=== PATIENT | male | born 1970 | race Caucasian/White ===

== ENCOUNTER 2020-01-31 01:55 | Outpatient (CLI) | payer BC, SELFPAY ==
[2020-01-31 20:00] LABS: SARS-CoV-2 RNA PCR Negative
== END 2020-01-31 01:56 | disposition home or self-care (01) ==
LOC: ANHCOVIDDT 01:56
PROVIDERS: Visit Provider Orthopaedic Surgery
DX: Z01.818 Encounter for other preprocedural examination (principal); Z20.828 Contact with and (suspected) exposure to other viral communicable diseases
CPT/HCPCS: 87635; C9803; U0003

== ENCOUNTER 2020-02-03 02:31 | Day surgery (SDC) | payer BC, SELFPAY ==
[2020-01-29 14:10] VITALS: BMI 31.7
--- NOTE | 2020-01-31 14:23 | WPDANESEPPF ---
Anes - Initial Pre Proc Eval Procedure: Operation Date: 02/03/20 13:00 Proposed Procedures p Left Fourth Trigger Finger Release - Son Peres MD Date/Time: 01/31/20 14:23 Surgeon: Son Peres MD Pre Op Diagnosis: Left Fourth Trigger Finger Patient Data Age: 49 Gender: M Height: 1.75 m Weight: 97.52 kg Allergies Allergy/AdvReac Type Severity Reaction Status Date / Time bacitracin Allergy Mild Rash Verified 02/03/20 10:48 [From Neosporin ([id number])] neomycin Allergy Mild Rash Verified 02/03/20 10:48 [From Neosporin ([id number])] polymyxin B Allergy Mild Rash Verified 02/03/20 10:48 [From Neosporin ([id number])] Home Medications Medication Instructions Recorded Confirmed Type escitalopram oxalate 10 mg tablet 10 mg PO HS 11/21/19 02/03/20 History Patient hx anesthesia problems: none Family hx anesthesia problems: none PMFSH Past Medical History Medical History BMI 30.0-30.9,adult H/O: gout Healthy adult male Trigger finger, left ring finger Surgical History Surgical History History of appendectomy History of orthopedic surgery History of tonsillectomy Social History Social History Smoking status: Former smoker Tobacco type: cigarettes Second hand tobacco smoke exposure: No Smoking end date: 02/13/90 Alcohol intake: current Substance use: current Substance use type: marijuana Living arrangements: alone Gender identity (if verbalized by the patient): Male Spiritual care concerns: No Anes - Eval Final PreProcedure Day of Procedure 01/31/20 14:23 Patient weight: obese Heart: regular rate and rhythm Lungs: clear to auscultation and normal air movement Airway: Mallampati scale class II Neurological: alert and oriented Last oral intake: >/= 8 hours ASA classification: II Emergent: no Anesthetic plan: proceed Anesthesia type and monitoring: general GIVS and standard monitoring Informed Consent: The patient's anesthetic plan and its attendant risks and benefits were discussed with the patient/family/POA. Questions were solicited and answers provided to the satisfaction of the patient/family/POA.
[2020-02-03 10:44] VITALS: BP 137/86; PULSE 62; RESP 16; TEMP 36.1; O2SAT 98
[2020-02-03] MEDS: ACETAMINOPHEN 500 MG TABLET 1000 MG PO (11:01)
[2020-02-03] MEDS: KETOROLAC 15 MG/ML VIAL (*BKC) IV PUSH (11:09)
[2020-02-03] MEDS: LACTATED RINGERS 1,000 ML 30 ML IV CONT (11:09)
--- NOTE | 2020-02-03 12:22 | WPDHPUPDATE1 ---
History and Physical Update Update Date/Time: 02/03/20 12:22 History and Physical has been reviewed, including an updated exam of the patient. There are NO changes in the patient's condition. Risks, benefits, and alternatives have been discussed and questions answered. Patient agrees to proceed with procedure.
[2020-02-03] MEDS: ceFAZolin 2 GM/D5W 50 ML 2 GM/50 ML BAG IVPB (13:00)
[2020-02-03 13:26] VITALS: BP 110/68; PULSE 48; RESP 10; O2SAT 94
--- NOTE | 2020-02-03 13:26 | P.OP_ITS ---
Procedure Note - Detailed Date of procedure: 02/03/20 Pre-op diagnosis: Left Fourth Trigger Finger Post-op diagnosis: same Procedure performed: Left fourth trigger finger release Description of procedure: The patient was identified and proper site identified. He was taken to the operating room and transferred to the OR table placing supine taking care to pad the torso and extremities. IV sedation was administered. A nonsterile tourniquet was placed high on the left arm which was prepped and draped in the usual sterile fashion. Several cc of .25 % plain Marcaine was injected into the subcutaneous tissue over the A1 nitza of the lef t fourth digit. The extremity was exsanguinated and the tourniquet was inflated to 250 mmHg remaining up for about four minutes. A longitudinal incision was made over the A1 nitza. Subcutaneous tissue was bluntly dissected down to the nitza while protecting the neurovascular bundles. The A1 nitza was identified and then transected longitudinally in line with the incision and tendons. The t endons were delivered into the wound verifying the adequacy of the release. Hemostasis was carried out. The wound was irrigated with sterile saline. Skin edges were reapproximated with 4-0 nylon suture. Sterile dressing was applied. Tourniquet was released. He tolerated the procedure well and was transferred back to a cart, then taken to the recovery area in stable condition. There were no known intraoperative complications. Estimated blood loss was negligible. Perioperative antibiotics were administered. Anesthesia: MAC and local Surgeon: Son Peres MD Estimated blood loss (mL): 1 Tourniquet time (min): 4 Drains: No Packing: No Pathology: none sent Complications: No immediate complications Condition: stable Disposition: PACU
[2020-02-03 13:45] VITALS: BP 110/80; PULSE 48; RESP 12; O2SAT 94
[2020-02-03 14:10] VITALS: BP 119/86; PULSE 45; RESP 12
[2020-02-03 14:40] VITALS: BP 109/77; PULSE 44; RESP 12
[2020-02-03 15:05] VITALS: BP 118/76; PULSE 47; RESP 12
--- NOTE | 2020-02-03 15:10 | SUR.PHASEII ---
1515 PT MEETS ANESTHESIA DISCHARGE CRITERIA. WAITING ON PTS BROTHER FOR A RIDE HOME.
== END 2020-02-03 15:43 | disposition home or self-care (01) ==
PROVIDERS: Visit Provider Orthopaedic Surgery
PROC: (CPT 26055; principal; 2020-02-03 13:00)
DX: M65.342 Trigger finger, left ring finger (principal); F12.90 Cannabis use, unspecified, uncomplicated; Z87.891 Personal history of nicotine dependence; E66.9 Obesity, unspecified; Z68.30 Body mass index [BMI] 30.0-30.9, adult
CPT/HCPCS: 26055; A9270; J0690; J1885; J2250; J2704; J3010; J7120